=== PATIENT | male | born 1980 | race Caucasian/White ===

== ENCOUNTER 2018-04-12 21:29 | Emergency (ER) | payer OTHER ==
[~2018-04-12] VITALS: Ht 182.9 cm; Wt 101.5 kg
[2018-04-12 22:05] LABS: HEMATOCRIT 42.6 % (38.0-50.0); HEMOGLOBIN 15.5 G/DL (12.5-16.6); MCH 31.4 PG (29.0-34.0); MCHC 36.4 G/DL (30.0-36.0); MCV 86.2 FL (86-99); PLATELET COUNT 245 K/uL (156-360); RBC DIS.WIDTH-SD 40.4 % (39-53); RED BLOOD COUNT 4.94 M/uL (4.00-5.50); WHITE BLOOD COUNT 14.2 K/uL (4.1-10.2)
[2018-04-12 22:18] LABS: ALBUMIN 4.6 g/dL (3.2-4.8); CHLORIDE 106 mEq/L (99-109); POTASSIUM 3.4 mEq/L (3.7-5.4); SODIUM 138 mEq/L (136-147)
[2018-04-12 22:21] LABS: GLUCOSE 91 mg/dL (70-99); TOTAL PROTEIN 7.7 g/dL (6.4-8.3)
[2018-04-12 22:22] LABS: TOTAL BILIRUBIN 1.2 mg/dL (0.0-1.0)
[2018-04-12 22:24] LABS: ALKALINE PHOSPHATASE 61 IU/L (3-129); CREATININE 0.9 mg/dL (0.6-1.3)
[2018-04-12 22:25] LABS: UREA NITROGEN (BUN) 8 mg/dL (9-23)
[2018-04-12 22:26] LABS: AST (GOT) 28 IU/L (2-34)
[2018-04-12 22:27] LABS: ALT (GPT) 62 IU/L (3-49)
[2018-04-12 22:43] LABS: GFR ESTIMATE (CALCULATED) > 59 mL/min/ (58.99-99999)
[2018-04-12 23:34] VITALS: BP 159/125
== END 2018-04-12 23:35 | disposition home or self-care (01) ==
LOC: EME 21:29
DX: E88.2 Lipomatosis, not elsewhere classified (principal); F17.200 Nicotine dependence, unspecified, uncomplicated
CPT/HCPCS: 80053; 85027; 99281; 99284; J3010